=== PATIENT | male | born 1960 | race Caucasian/White ===

== ENCOUNTER 2018-08-28 14:34 | Emergency (ER) | payer OTHER ==
[2018-08-28 14:51] VITALS: BP 126/87
--- NOTE | 2018-08-28 14:52 | UC ---
Hand/Wrist HPI - HPI Summary HPI Summary: Patient presents to urgent care with right forearm and hand pain. Patient is [id number]. Patient states he woke up with it this morning. Patient states he little pain at rest. Patient with states with activity and movement pain increases. Patient is a drug trauma. 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 Patient states at work today when he was packing the pain got much worse. No analgesia taken. No history of injury or discomfort to the right hand. Patient did have croup on his left but states this feels different. Patient denies any paresthesias, cold pain, color change. Patient' s medications reviewed this visit - History Of Current Complaint Chief Complaint: UCUpperExtremity Stated Complaint: RT HAND INJURY Time Seen by Provider: 08/28/18 14:45 Hx Obtained From: Patient Onset/Duration: Gradual Onset Severity Currently: Mild Pain Intensity: 0 Pain Scale Used: 0-10 Numeric - Allergies/Home Medications Allergies/Adverse Reactions: Allergies Allergy/AdvReac Type Severity Reaction Status Date / Time No Known Allergies Allergy Verified 08/28/18 14:46 PMH/Surg Hx/FS Hx/Imm Hx Previously Healthy: Yes - Surgical History Surgical History: Yes Surgery Procedure, Year, and Place: spleenectomy, - Family History Known Family History: Positive: Non-Contributory Negative: Hypertension, Diabetes - Social History Occupation: Employed Full-time Lives: With Family Alcohol Use: Rare Substance Use Type: None Smoking Status (MU): Heavy Every Day Tobacco Smoker Type: Cigarettes Amount Used/How Often: 1 ppd Length of Time of Smoking/Using Tobacco: 30 yrs Have You Smoked in the Last Year: Yes Review of Systems All Other Systems Reviewed And Are Negative: Yes Motor: Positive: Other - right wrist Neurological: Positive: Negative. Negative: Paresthesia, Numbness Is Patient Immunocompromised?: No Physical Exam - Summary Physical Exam Summary: Vital Signs Reviewed: Yes A+Ox3, no distress Eyes: Conjunctiva Clear ENT: Hearing grossly normal neck: supple Respiratory: Positive: No respiratory distress, No accessory muscle use Cardiovascular: skin color reflect adequate perfusion, 2+ radial 2 + ulnar CBT <2 sec Musculoskeletal Exam: + abduct shoulder right, + flex/ext elbow +pronate/ supinate with mild discomfort distal/dorsum/ radial aspect of forearm + flex/ ext wrist with discomfort same . TTP mild along dorsum distal forearm No pain with palpation of metacarpals, carpals with full grasp pt reports pain over carpals radial aspect Neurological: Positive: Alert, ambulatory without difficulty; + thumb up, a ok , finger cross, finger spread, + gross sensation throughout Psychological: Positive: Normal Response To Family Skin: Positive: no rash, no ecchymosis, no edema, no erythema Triage Information Reviewed: Yes Vital Signs: Initial Vital Signs Temp 98 F 08/28/18 14:47 Pulse 87 08/28/18 14:47 Resp 16 08/28/18 14:47 BP 126/87 08/28/18 14:47 Pulse Ox 99 08/28/18 14:47 Diagnostics - Radiology No standard instances Radiology Interpretation Completed By: Radiologist - Patient Name: STACEY IRBY Medical Record#: [id number] Ordering Physician: Shantelle Fuentes MD Acct.#: [id number] : 1960 Age: 57 Sex: M Location: [facility] Exam Date: 08/28/18 1505 ADM Status: REG ER Order Information: HAND - RIGHT MINIMUM 3 VIEWS Accession Number: [id number] CPT: 36406 HISTORY: pain distal, volar dorsum and hand . COMPARISONS: Right wrist dated August 28, 2018 VIEWS: 4, Frontal, lateral, and oblique views of the right hand FINDINGS: BONE DENSITY: Normal. BONES: There is no displaced fracture. 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 ALIGNMENT: There is no dislocation. SOFT TISSUES: Unremarkable. OTHER FINDINGS: None. IMPRESSION: NO ACUTE OSSEOUS INJURY. IF SYMPTOMS PERSIST , RECOMMEND REPEAT IMAGING. <Electronically signed by Giancarlo Farias MD in OV> 08/28/18 153 Dictated By: Giancarlo Farias MD Dictated Date/Time: 08/28/18 1530 Transcribed Date/Time: 08/28/18 1529 Copy to: CC:Shantelle Fuentes MD; [facility] [address] [address] ph ([phone]) ph ([phone]) ph ([phone]) This report is only to be considered final once signed by the Provider(s) as displayed in the "<Electronically Signed by >" field (s). Absence of a signature indicates the report is in a draft status and still needs to be finalized. In the event this document was created by someone other than the signing Provider, the individual initiating the document will be listed in the "Entered by:" or "Dictated by:" arroyo. 1 of 1 Hand/Wrist Course/Dx - Course Course Of Treatment: Patient presents to urgent care reporting right forearm and hand pain. Patient's right-hand dominant. Patient is woke with it this morning. Patient with history of similar. Patient states little pain at rest pain increases with movement. On exam pain with direct palpation along the dorsal radial aspect of his distal forearm. Patient also with mild discomfort to the dorsum radial aspect of his hand. Patient with certain movements. No edema no erythema. Suspect patient has some tendinitis, possibly repetitive use. We will image to look for arthritis. Will place patient in a cock-up splint. Advised patient to follow-up with orthopedics. Discussed with patient strict return precautions. Patient comfortable in agreement with plan. - Differential Dx/Diagnosis Provider Diagnosis: Right wrist tendonitis Discharge - Sign-Out/Discharge Documenting (check all that apply): Patient Departure All imaging exams completed and their final reports reviewed: Yes - Discharge Plan Condition: Stable Disposition: HOME Patient Education Materials: Tendinitis (ED) Referrals: Wesley Lyman MD [Medical Doctor] - [facility] Astudillo [Primary Care Provider] - Additional Instructions: -wear splint for comfort and support -apply ice, wrapped in a towel, 20 min at a time every 2-3 hours for the next 2 days -Okay to alternate ibuprofen (Advil, Motrin) 600mg and Tylenol 1000mg every 3 hours for pain. Take with food. Do NOT take for more than 4-5 days -Contact the orthopedic provider to arrange a follow-up appointment this week. If you develop reddness, red streaking, swelling, fever, or any other concerns it is recommended you be re-evlauted at the information systems specialist, your doctor, here, or the emergency department. - Billing Disposition and Condition Condition: STABLE Disposition: Home
== END 2018-08-28 15:48 | disposition home or self-care (01) ==
LOC: UCCORT 14:34
DX: M77.9 Enthesopathy, unspecified (principal); F17.210 Nicotine dependence, cigarettes, uncomplicated
CPT/HCPCS: 99212; G0463

== ENCOUNTER 2019-04-16 18:23 | Emergency (ER) | payer OTHER ==
[2019-04-16 19:32] VITALS: BP 115/86
--- NOTE | 2019-04-16 19:36 | UC ---
Skin Complaint HPI - HPI Summary HPI Summary: 58 yo male presents with redness and pain to left thigh. He tells me that 2 days ago he noticed a red swollen bump to his left medial thigh. Since that time redness has spread up his medial thigh and is tender. Does not recall an injury or specific bug bite to the site. He smokes daily and states that two of his brothers recently were dx'd with PEs. Denies SOB, chest pain, fever, chills. - History of Current Complaint Chief Complaint: UCSkin Time Seen by Provider: 04/16/19 19:35 Stated Complaint: LEFT LEG SORENESS/REDNESS Hx Obtained From: Patient Onset/Duration: Sudden Onset Onset Severity: Mild Current Severity: Moderate Pain Intensity: 5 Pain Scale Used: 0-10 Numeric - Allergy/Home Medications Allergies/Adverse Reactions: Allergies Allergy/AdvReac Type Severity Reaction Status Date / Time No Known Allergies Allergy Verified 04/16/19 19:32 Home Medications: Home Medications NK [No Home Medications Reported] 04/16/19 [History Confirmed 04/16/19] PMH/Surg Hx/FS Hx/Imm Hx Respiratory History: COPD - Surgical History Surgical History: Yes Surgery Procedure, Year, and Place: spleenectomy, - Family History Known Family History: Positive: Non-Contributory Negative: Hypertension, Diabetes - Social History Lives: With Family Alcohol Use: Rare Substance Use Type: None Smoking Status (MU): Heavy Every Day Tobacco Smoker Type: Cigarettes Amount Used/How Often: 1 ppd Length of Time of Smoking/Using Tobacco: 30 yrs Have You Smoked in the Last Year: Yes Review of Systems All Other Systems Reviewed And Are Negative: No Constitutional: Positive: Negative Skin: Positive: Other - Redness, pain, swelling left thigh Respiratory: Positive: Negative Cardiovascular: Positive: Negative Musculoskeletal: Positive: Negative Neurological: Positive: Negative Psychological: Positive: Negative Physical Exam - Summary Physical Exam Summary: GENERAL: NAD. WDWN. No pain distress. SKIN: LEFT THIGH: Medial aspect lower thigh with 1.0cm area of firmness and erythema with slight warmth, induration, or fluctuance. Streaking up medial thigh with slight warmth and palpable cord that is TTP. No abscess appreciated. CHEST: No accessory muscle use. Breathing comfortably and in no distress. CV: Pulses intact PT and DP. Cap refill <2seconds NEURO: Alert. Sensations intact and symmetric B/L LEs PSYCH: Age appropriate behavior. Triage Information Reviewed: Yes Vital Signs: Initial Vital Signs Temp 98.9 F 04/16/19 19:27 Pulse 63 04/16/19 19:27 Resp 16 04/16/19 19:27 BP 115/86 04/16/19 19:27 Pulse Ox 100 04/16/19 19:27 Vital Signs Reviewed: Yes Course/Dx - Course Course Of Treatment: Suspect cellulitis vs DVT vs superficial phlebitis. Given his risk factors and fam hx - recommend pt go to the ED for further eval and US of the area. He was agreeable to this and will drive himself now. - Diagnoses Provider Diagnosis: Redness and swelling of thigh Discharge ED - Sign-Out/Discharge Documenting (check all that apply): Patient Departure All imaging exams completed and their final reports reviewed: No Studies - Discharge Plan Condition: Stable Disposition: HOME-RECOMMEND TO ED Referrals: Rain Astudillo [Primary Care Provider] - Additional Instructions: Please go to the ER for your thigh redness and pain with palpable cord - Billing Disposition and Condition Condition: STABLE Disposition: Home-Recommend to ED - Attestation Statements Provider Attestation: Chart reviewed. Pt not seen by me. I was available for consult. ANGELINE
== END 2019-04-16 19:48 | disposition home health service (06) ==
LOC: UCCORT 18:23
DX: R23.8 Other skin changes (principal); F17.210 Nicotine dependence, cigarettes, uncomplicated; J44.9 Chronic obstructive pulmonary disease, unspecified
CPT/HCPCS: 99212; G0463

== ENCOUNTER 2019-10-21 12:23 | Emergency (ER) | payer OTHER ==
[2019-10-21 12:33] VITALS: BP 130/97
--- NOTE | 2019-10-21 13:05 | UC ---
Shoulder Pain HPI - HPI Summary HPI Summary: 59 yo WM with h/o 1-2PPD smoker x 30-40 years p/w right upper pectoral pain radiating to right upper arm x few days denies cough, f/c/,SOB, denies chest pressure. Right upper chest pain is associated with movement of right shoulder and movement of his neck side to side. - History of Current Complaint Chief Complaint: UCUpperExtremity Stated Complaint: RIGHT ARM/SHOULDER PAIN, CHEST PAIN Time Seen by Provider: 10/21/19 12:34 Hx Obtained From: Patient Onset/Duration: Sudden Onset Timing: Constant Severity Initially: Moderate Severity Currently: Moderate Location Of Pain: Is Discrete @ - and over right upper pectoralis, Radiates To - right upper arm and right upper trapezius to right shoulder Pain Intensity: 9 - Allergies/Home Medications Allergies/Adverse Reactions: Allergies Allergy/AdvReac Type Severity Reaction Status Date / Time No Known Allergies Allergy Verified 10/21/19 12:26 Home Medications: Home Medications Naproxen [Naproxen 500 mg tab] 500 mg PO BID 10 Days #20 tablet 10/21/19 [Rx] PMH/Surg Hx/FS Hx/Imm Hx - Surgical History Surgical History: Yes Surgery Procedure, Year, and Place: spleenectomy, - Family History Known Family History: Positive: Non-Contributory Negative: Hypertension, Diabetes - Social History Alcohol Use: Rare Substance Use Type: None Smoking Status (MU): Heavy Every Day Tobacco Smoker Type: Cigarettes Amount Used/How Often: 1 ppd Length of Time of Smoking/Using Tobacco: 30 yrs Have You Smoked in the Last Year: Yes Review of Systems All Other Systems Reviewed And Are Negative: Yes Constitutional: Positive: Negative Eyes: Positive: Negative ENT: Positive: Negative Respiratory: Positive: Negative. Negative: Shortness Of Breath, Cough Cardiovascular: Positive: Negative Gastrointestinal: Positive: Negative Genitourinary: Positive: Negative Motor: Positive: Negative Neurovascular: Positive: Negative Musculoskeletal: Positive: Negative Neurological/Mental Status: Positive: Negative Psychological: Positive: Negative Physical Exam - Summary Physical Exam Summary: Vital Signs Reviewed: Yes Appearance: Positive: No Pain Distress Skin: Positive: Warm Head/Face: Positive: Normal Head/Face Inspection Eyes: Positive: Normal ENT: Positive: Normal ENT inspection Dental: Negative: Cervical Lymphadenopathy Neck: Positive: Supple Respiratory/Lung Sounds: Positive: Clear to Auscultation, Neg w/r/r Cardiovascular: Positive: Normal, RRR, S1, S2 Abdomen Description: Positive: Nontender Musculoskeletal: Positive: TTP Over right upper pectoralis major radiating to right humerus and right upper trapezius on movement of right shoulder Neurological: Positive: Normal Psychiatric: Positive: Normal Vital Signs: Initial Vital Signs Temp 36.8 C 10/21/19 12:27 Pulse 62 10/21/19 12:27 Resp 17 10/21/19 12:27 BP 130/97 10/21/19 12:27 Pulse Ox 100 10/21/19 12:27 Shoulder Course/Dx - Course Course Of Treatment: right chest wall pain - EKG neg for acute STT changes CXR- [facility], hyperinflated lungs, emphysematous, rad rec. CT chest given pt's smoking hx, advised pt the same XR of C-spine moderate to severe arthropathy in C5-6, may be impinging on cervical nerve roots of C5,6 that may explain current sx of right deltoid and cervical radiculopathy - Differential Dx/Diagnosis Provider Diagnosis: Right-sided chest wall pain, Neck arthropathy, Cervical arthritis, Cervical radiculopathy at C5 Discharge ED - Sign-Out/Discharge Documenting (check all that apply): Patient Departure All imaging exams completed and their final reports reviewed: Yes - Discharge Plan Condition: Stable Disposition: HOME Prescriptions: Naproxen [Naproxen 500 mg tab] 500 mg PO BID 10 Days #20 tablet Patient Education Materials: Cervical Radiculopathy (ED), Musculoskeletal Pain (ED), Arthritis (ED) Referrals: Rain Astudillo [Primary Care Provider] - - Billing Disposition and Condition Condition: STABLE Disposition: Home
== END 2019-10-21 14:05 | disposition home or self-care (01) ==
LOC: UCCORT 12:23
DX: R07.89 Other chest pain (principal); M47.22 Other spondylosis with radiculopathy, cervical region; M50.122 Cervical disc disorder at C5-C6 level with radiculopathy; F17.210 Nicotine dependence, cigarettes, uncomplicated
CPT/HCPCS: 71046; 72040; 99212; G0463